=== PATIENT | female | born 1950 | race Hispanic/Latino ===

== ENCOUNTER 2025-04-19 07:07 | Day surgery (SDC) | payer OTHER ==
[2025-04-13 10:42] VITALS: BP 122/68; PULSE 75; RESP 18; TEMP 97.5
[2025-04-13 10:45] LABS: IMMATURE GRANULOCYTE ABSOLUTE 0.04 K/uL (0-1); NUCLEATED RED BLOOD CELLS 0.0 % (0.0-0.19); PLATELET COUNT (AUTO) 218 K/uL (130-400); RED BLOOD CELL COUNT(AUTO) 4.33 MIL/uL (4.00-5.50); RED CELL DISTRIBUTION WIDTH 12.9 % (11.0-15.5); WHITE BLOOD COUNT (AUTO) 10.2 K/uL (4.8-10.8)
[2025-04-13 10:47] LABS: APPEARANCE,URINE CLEAR (CLEAR); GLUCOSE, URINE (UA) NEGATIVE (NEGATIVE); LEUKOCYTE ESTERASE ,URINE 75 Leu/uL (NEGATIVE); NITRATE,URINE NEGATIVE (NEGATIVE); OCCULT BLOOD,URINE +- (TRACE) (NEGATIVE)
[2025-04-13 10:54] LABS: CREATININE 1.0 mg/dL (0.5-1.0); GLOMERULAR FILTR. RATE CALC 59.0 mL/min (>90); GLUCOSE,RANDOM 69.0 mg/dL (70-105); SODIUM SERUM 139.0 mmol/L (136-145); UREA NITROGEN, BLOOD 18.0 mg/dL (7-18)
[2025-04-13 11:06] LABS: INR 0.98 (0.85-1.15)
[2025-04-13 11:06] LABS: ADD UA MICROSCOPIC YES
[2025-04-13 11:07] LABS: SQUAMOUS EPITHELIAL CELL,UR FEW /HPF (0-2)
--- NOTE | 2025-04-13 12:59 | HMCIMG ---
CHEST 1VW REASON: PRE OP COMPARISON: None. FINDINGS: Single view of the chest was obtained. Lungs are clear. Heart size is normal. There is uncoiling atherosclerotic change of thoracic aorta. There is no pulmonary vascular congestion. Mediastinum and bony thorax appear unremarkable. There are surgical clips in the right upper quadrant from prior cholecystectomy. IMPRESSION: 1. No acute cardiopulmonary process..
--- NOTE | 2025-04-13 16:03 | EKG ---
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
--- NOTE | 2025-04-16 09:37 | NUR ---
RE: LABS REPORTED K 5.[address] MAGED ALCALA, NO NEW ORDERS RECEIVED.
[~2025-04-19] VITALS: Ht 162.6 cm; Wt 85.0 kg
[2025-04-19] VITALS (10 sets, daily range): BP systolic 98–125; BP diastolic 38–68; PULSE 59–66; RESP 18; TEMP 97.3–98.1
[~2025-04-19 07:07] MED LIST: ATOR10 PO; CLOP75TA32 PO; ENAL-91 PO; ESCI-8 PO; MEMA5TAB16 PO; METO-408 PO
[2025-04-19] MEDS: 0.9%NACL 1000ML 1,000 ML IV ONE (08:29)
[2025-04-19] MEDS ORDERED: VERAPAMIL HCL 2.5 MG/ML VIAL ONE (11:11)
[2025-04-19] MEDS ORDERED: LIDOCAINE HCL 400MG/20ML VIAL ONE (11:11)
[2025-04-19] MEDS ORDERED: IOHEXOL 350 MG/ML 100ML INFUS..BTL IV ONE (11:11)
[2025-04-19] MEDS ORDERED: NITROGLYCERIN 50MG VIAL ONE (11:12)
[2025-04-19] MEDS ORDERED: HEParin-NS 1,000 UNIT/500 ML 1,000 ML IV ONE (11:12)
[2025-04-19] MEDS ORDERED: MIDAZOLAM HCL 1 MG/ML 2ML VIAL ONE ×2 (11:32→12:21)
[2025-04-19] MEDS ORDERED: DEXTROSE 50%-WATER 50 ML DISP.SYRIN IV PRN (13:00)
[2025-04-19] MEDS ORDERED: GLUCAGON 1MG KIT 1 MG ML IM PRN (13:00)
[2025-04-19] MEDS ORDERED: 0.9%NACL 1000ML 1,000 ML IV SCH (13:00)
--- NOTE | 2025-05-11 08:03 | PRN ---
PROCEDURE REPORT DATE OF PROCEDURE: 04/19/2025 COUNSELING PROGRAM LEADER: [ Maged Webster MD] PROCEDURE PERFORMED: Conscious sedation Ultrasound guided right radial artery access Ultrasound guided right brachial vein access Selective left coronary artery angiogram Selective right coronary artery angiogram Left heart catheterization Right heart catheterization TR band 13 radha over right radial artery INDICATION: Dyspnea Severe aortic stenosis DESCRIPTION OF PROCEDURE: After informed consent was obtained, the patient was prepped and draped in the usual sterile fashion. A 6 [place] arterial sheath was inserted in the right radial artery using ultrasound guidance with first pass wall puncture. The arterial sheath was aspirated and flushed. A 6 [place] JL 3.5 was then advanced to the ascending aorta over an exchange length J-tip guidewire, was aspirated and flushed, and was used for selective coronary angiograms in multiple obliquities. A JR-4 was advanced in a similar fashion to the ascending aorta over the J-tipped guidewire and was used for selective right coronary angiograms in multiple oblique views with findings as outlined below. The JR-4 catheter advanced into the LV and pressures were obtained with a pull-back across the aortic valve. A TR band was placed over right radial artery. RHC: In a sterile fashion, a wire was advanced through the existing right cephalic vein and sheath was exchanged over the wire. A 5F swan catheter was advanced to the SVC and SaO2 was obtained, then the swan with balloon inflated was advanced to the wedge position and pressures obtained. The catheter was withdrawn into the right PA and oxygen saturations were obtained and pressures. Simultaneously, the arterial oxygen saturation was obtained in the right radial artery. Then, the catheter was withdrawn into the right ventricle and pressures were obtained. The swan was then removed. RHC: mm Hg Mean RA: 7 RV: 24/7 PA: 24/10 (13) PCWP: 20/13/15 CO/CI: 2.79/1.48 SVC O2 sat: 65.1% PA O2 sat: 65.7% Arterial O2 sat: 97.6% on room air LEFT HEART HEMODYNAMICS: LVEDP 17 mm Hg with a mean gradient of 37mmHg and [place] 0.5cm2 CORONARY ANGIOGRAM: LEFT MAIN: Patent and 0% stenosis. Gives rise to LCx and LAD. LEFT ANTERIOR DESCENDING: Large vessel giving rise to two Diagonal branches. There is 20-30% mid LAD stenosis just after the first septal artery with TAT[place] 3 flow. LEFT CIRCUMFLEX: Large and gives rise to two OM branches. 0% stenosis. RIGHT CORONARY ARTERY: Large, dominant vessel giving rise to PDA and PL branches. 0% stenosis. HEMOSTASIS: TR band 12 radha over right radial artery INTERVENTIONS: None. COMPLICATIONS: None FINDINGS: Normal coronary anatomy and mild non-obstructive CAD. Severe aortic stenosis with low CO/CI Stable PA pressures. ESTIMATED BLOOD LOSS: 5 cc RECOMMENDATIONS/INSTRUCTIONS: Aggressive risk factor modification. Optimize GDT and refer for TAVR eval/workup Radial arm precautions. Follow up 1-2 weeks post DC CONTRAST DELIVERED TO PATIENT (mL): 60cc MAGED WEBSTER MD May 11, 2025 08:03
== END 2025-04-19 17:17 | disposition home or self-care (01) ==
LOC: DAH 07:07
PROVIDERS: ATTEND Student in an Organized Health Care Education/Training Program
DX: I35.0 Nonrheumatic aortic (valve) stenosis (principal); I25.118 Atherosclerotic heart disease of native coronary artery with other forms of angina pectoris; R06.00 Dyspnea, unspecified; E78.00 Pure hypercholesterolemia, unspecified; K21.9 Gastro-esophageal reflux disease without esophagitis; R06.02 Shortness of breath; Z90.710 Acquired absence of both cervix and uterus; Z98.890 Other specified postprocedural states; Z79.899 Other long term (current) drug therapy
CPT/HCPCS: 80048; 83880; 85025; 85610; 85730; 87086; 81001; 36415; 71045; 93005; 93460; 99156; 99157 ×2; C1894 ×2; C1769 ×2; J3010 ×2; J3490 ×3; J7030; J1644 ×2; J2250 ×2; Q9967; A4215; A4222; A4221; A4663; A4216; A4606; Q9965; A4223 ×3

== ENCOUNTER → 2025-05-21 | Outpatient (CLI) | payer OTHER ==
[~2025-05-21] MED LIST changes: +IOHEXOL 350 MG/ML 100ML INFUS..BTL IV ONE
--- NOTE | 2025-05-22 10:15 | HMCIMG ---
EXAM: CTA Chest, abdomen, and pelvis for TAVR evaluation. CLINICAL HISTORY: Nontraumatic aortic stenosis. TECHNIQUE: EKG cardiac gated thin collimated axial CT images of the chest, abdomen, and pelvis were obtained, and sagittal and coronal reformatted images were also submitted. CT scan is done according to ALARA (As Low as Reasonably Achievable). COMPARISON: None provided. FINDINGS: The AVCS (Aortic valve calcium score) is not provided. 3 aortic sinuses are present. Mild calcification of the annulus. The aortic annulus measures 2.4 cm in transverse diameter. The aortic root at the widest point measures 2.9 cm. The aortic root at the sinotubular junction measures 2.6 cm. The vertical distance from the aortic annulus to the sinotubular junction at the left coronary sinus measures 1.3 cm. No pericardial effusion. The heart size is within normal limits. There is mild calcification of the thoracic aorta. The ascending aorta measures 3.8 cm. The descending thoracic aorta measures 2.4 cm. The abdominal aorta measures 1.6 cm in anteroposterior dimensions and 1.5 cm in transverse dimensions at the level of renal arteries. Abdominal aorta at the level of bifurcation measures 1.4 cm. Right common iliac artery measures 0.9 cm and the left common iliac artery measures 0.9 cm. The right and left common femoral arteries measure 0.7 cm. 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 The lungs are clear. No pleural effusions. No axillary, supraclavicular, or mediastinal lymphadenopathy. There is no focal abnormality appreciated within the liver, pancreas, spleen, or adrenals. Status post cholecystectomy. 10 mm Bosniak classification 1 and other chronic findings as described. Cortical cyst in the upper pole of the left kidney. There is no obvious bowel wall thickening. Bowel loops are normal in caliber without evidence of obstruction or ileus. Sigmoid diverticulosis. The appendix is normal. There is no abnormality within the urinary bladder. Status post hysterectomy. No lymphadenopathy. No free fluid. There is no acute osseous abnormality. IMPRESSIONS: 1. Aortic root measurements as described. The AVCS (Aortic valve calcium score) is not provided. 2. No aortic aneurysm or dissection. Splenic artery aneurysm. 3. Other chronic findings as described. /Tika
== END | disposition home or self-care (01) ==
LOC: RAH 07:26
PROVIDERS: ATTEND Student in an Organized Health Care Education/Training Program
DX: I72.8 Aneurysm of other specified arteries (principal); K57.30 Diverticulosis of large intestine without perforation or abscess without bleeding; I77.810 Thoracic aortic ectasia; I35.0 Nonrheumatic aortic (valve) stenosis; N28.1 Cyst of kidney, acquired; Z90.710 Acquired absence of both cervix and uterus; Z90.49 Acquired absence of other specified parts of digestive tract
CPT/HCPCS: 74174; 71275; Q9967